=== PATIENT | male | born 1960 | race Caucasian/White ===

== ENCOUNTER 2018-11-23 09:02 | Day surgery (SDC) | payer OTHER ==
[~2018-11-23] VITALS: Ht 188 cm; Wt 150.5 kg
[~2018-11-23 09:02] MED LIST: AMLO5TAB6 PO; ASPI81TA83 OR; ATOR40TA75 PO; B COTAB3 PO; CARV6.25 PO; CATA0.2D TD; CHLO125TA PO; CIAL10TA OR; DIGO0.257 OR; EPLE25TA PO; FLEC1TAB PO; GLUCTAB PO; GLUCTAB2 PO; HYZAAR PO; LOSA100T50 PO; LOTRCRE TOP; LOVAZA PO; METO-743 OR; NIAS500T2 OR; TRIC145T19 OR; VITA100027 PO; VYTO10TA5 OR; XARE20TA PO; pradaxa
[2018-11-23] MEDS ORDERED: LR 1,000 ML IV ONE (09:45)
[2018-11-23] MEDS ORDERED: CARVedilol 6.25 MG TAB PO ONE (09:45)
[2018-11-23] MEDS ORDERED: AMPICILLIN SOD/SULBACTAM SOD 3 GM in D5W MINI-BAG PLUS 100 ML IV ONE (09:45)
[2018-11-23] MEDS ORDERED: LIDOCAINE 2% INJ 100 MG/5 ML SDV (FOR ANES.) As Ordered ONE (09:45)
[2018-11-23] MEDS ORDERED: PROPOFOL 200 MG/20 ML VIAL As Ordered ONE ×2 (09:45→11:54)
[2018-11-23] MEDS ORDERED: fentaNYL 100 MCG/2 ML INJECTION (J3010) As Ordered ONE ×3 (09:46→14:15)
[2018-11-23] MEDS ORDERED: dexameTHASONE 4 MG/ML 1ML VIAL (J1100) As Ordered ONE (09:46)
[2018-11-23] MEDS ORDERED: ROCURONIUM BROMIDE 50 MG/5 ML VIAL As Ordered ONE ×2 (09:46→11:51)
[2018-11-23] MEDS ORDERED: ONDANSETRON 4MG/2ML VIAL (J2405) As Ordered ONE (09:46)
[2018-11-23] MEDS ORDERED: MIDAZOLAM INJ 2 MG/2 ML VIAL (J2250) As Ordered ONE (09:47)
[2018-11-23 10:05] VITALS: BP 143/83
[2018-11-23] MEDS ORDERED: SUGAMMADEX SODIUM 500 MG/5 ML VIAL (BRIDION) As Ordered ONE (10:19)
[2018-11-23] MEDS ORDERED: LIDOCAINE 1% SDV INJ 30 ML VIAL As Ordered ONE (11:01)
[2018-11-23] MEDS ORDERED: BUPIVACAINE HCL 0.25% 30 ML VIAL As Ordered ONE (11:01)
[2018-11-23] MEDS ORDERED: VECURONIUM BROMIDE 10 MG VIAL As Ordered ONE (12:06)
[2018-11-23] MEDS ORDERED: KETOROLAC 60 MG/2 ML VIAL (J1885) As Ordered ONE (12:21)
[2018-11-23] MEDS ORDERED: ACETAMINOPHEN 1000MG 100ML IV BTL (OFIRMEV) (J0131 PER 10MG) As Ordered ONE (12:21)
[2018-11-23] MEDS ORDERED: PERCOCET 5MG/325MG TAB As Ordered ONE (14:58)
[2018-11-23] MEDS: PERCOCET 5MG/325MG TAB PO PRN ×2 (14:59→15:40)
[2018-11-23] MEDS ORDERED: ONDANSETRON 4MG/2ML VIAL (J2405) IV PRN (15:00)
[2018-11-23] MEDS ORDERED: LR 1,000 ML IV SCH (15:00)
[2018-11-23] MEDS ORDERED: fentaNYL 100 MCG/2 ML INJECTION (J3010) IV PRN (15:00)
[2018-11-23] MEDS ORDERED: MEPERIDINE INJ 25 MG/ML VIAL (J2175) IV PRN (15:00)
[2018-11-23] MEDS ORDERED: KETOROLAC 30 MG/ML VIAL (J1885) IV PRN (15:00)
[2018-11-23] MEDS ORDERED: METOCLOPRAMIDE INJ 10MG/2ML VIAL (J2765) IV PRN (15:00)
[2018-11-23] MEDS ORDERED: NORCO, ANEXSIA 5/325MG TABLET (HYDROcodone/ACETAMINOPHEN) PO PRN ×2 (15:15)
[2018-11-23 16:30] VITALS: BP 156/76
--- NOTE | 2018-12-12 06:03 | ROOPDOC ---
[facility] Report Of Operation Report of Operation DATE OF PROCEDURE: 12/12/18 PREPROCEDURE DIAGNOSES: Biliary dyskinesia, biliary colic, gallbladder polyps. POSTPROCEDURE DIAGNOSES: Chronic cholecystitis. PROCEDURE: Laparoscopic cholecystectomy. SURGEON: Sage Flor MD CUSTODIAL OFFICER: MD Dr. Jake Ochoa was present throughout the whole procedure. He assisted with placement of ports, retraction of the gallbladder and closure of the port sites afterwards. ANESTHESIA: Gen. anesthesia. ESTIMATED BLOOD LOSS: Approximately 50 mL. COMPLICATIONS: None. . PROCEDURE NOTE: Due to the patient's body habitus, morbid obesity, enlargement of the liver and location of the gallbladder well inside the liver, and difficulty dissecting down in maintaining visualization of the cystic duct so a drop fundus to gallbladder neck dissection was performed until the cystic duct was found. The cystic duct was controlled with 2 Vicryl Endoloops. While preparing the patient for surgery a tic was found on his right arm and I removed this. DESCRIPTION OF PROCEDURE: Patient was given a dose Unasyn 3 g IV preoperatively for prophylaxis. She was brought to the operating room, laid supine on the table, compression boots placed for DVT prophylaxis. General endotracheal anesthesia started. Her abdomen then prepped and draped in usual sterile fashion. Surgical timeout was performed prior to starting surgery. Entry into the abdomen done through an incision above the umbilicus. A Veress needle was inserted with a controlled fashion. CO2 insufflation started to pressure 15 mmHg. Using the same incision a 5 mm Visiport was placed under direct vision laparoscope. The area underneath the insertion site was inspected and no injury found. She was then placed in steep reverse Trendelenburg. Her right side was tilted up to further expose the gallbladder. Under direct vision a 11 mm epigastric port and two 5 mm working ports placed along the right subcostal line. Operative findings: His liver is mildly enlarged but noted to be smooth in contour no nodularities or lesions found. His gallbladder is moderately distended but thin walled. A was not able to palpate any stones within the gallbladder. This courses slightly deep into the underside of the liver with difficulty maintaining visualization of the neck of the gallbladder due to the bulkiness of the omentum overlying the area. The fundus of the gallbladder was grasped and the gallbladder was elevated superiorly exposing the neck of the gallbladder. The peritoneum overlying the area was opened up and dissected free both anteriorly and posteriorly to help with retraction of the gallbladder. The hepatocystic triangle was approached and dissected using a [place] and instrument. Though I could visually see the hepatocystic triangle and work on it that I had trouble maintaining visualization . [place] through the procedure and decided to perform a dome down approach. The posterior wall of the fundus of gallbladder was dissected free from the liver plate continued both medially and laterally. As I was able to dissect the gallbladder from the liver plate was able to maintained traction of the gallbladder and eventually able to maintain adequate visualization to fully dissect the hepatocystic triangle. The cystic duct was identified coming off from the next gallbladder this was circumferentially dissected. The cystic artery was identified in its usual position medially behind a small lymph node of [place]. This was similarly circumferentially dissected off surrounding adipose tissue. We continued posterior dissection proximally at the next gallbladder until a critical view of safety was achieved whereby only the previously identified duct and artery coursing through the neck the gallbladder. At this point the cystic artery was clipped 4 times and divided. After again checking her anatomy and verifying that the previously identified cystic duct, I used 2 Vicryl Endoloops to encircle the cystic duct stump as it looks like it's enlarged that the Hemoclip wound to fully control the cystic duct stump. I placed an additional clip after placement of the Vicryl Endoloop and after dividing partially the cystic duct. The rest of the gallbladder was then dissected free of the gallbladder bed using Bovie cautery. There was minimal bleeding at the lateral gallbladder attachments to the liver capsule this was easily controlled with Bovie cautery. The gallbladder was then placed in an Endo Catch bag and retrieved outside through the epigastric port site. Under insufflation and inspected the clips and noted this to be in place. No further bleeding noted. No bile leakage noted. The abdomen was insufflated all ports were removed. The epigastric fascial defect repaired with 0 Vicryl in a mattress fashion. Rest of the skin incisions closed with 4-0 Monocryl in subcuticular fashion. Steri-Strips and gauze dressings were placed, the wound. Patient was informed they awakened, extubated and brought to recovery room stable SAGE FLOR MD December 12, 2018 06:02
== END 2018-11-23 16:35 | disposition home or self-care (01) ==
LOC: M SDC 09:02
PROVIDERS: ATTEND Surgery
DX: K82.8 Other specified diseases of gallbladder (principal); I10 Essential (primary) hypertension; I48.91 Unspecified atrial fibrillation; G47.30 Sleep apnea, unspecified; E78.5 Hyperlipidemia, unspecified; E11.9 Type 2 diabetes mellitus without complications; Z79.899 Other long term (current) drug therapy; Z79.01 Long term (current) use of anticoagulants; Z86.711 Personal history of pulmonary embolism
CPT/HCPCS: 47562; 88300; 88304; J0131; J1100; J1885; J2250; J2405; J3010

== ENCOUNTER → 2019-09-05 | Outpatient (CLI) | payer BC ==
[~2019-09-05] MED LIST changes: +METHACHOLINE KIT (J7674) INH ONE
--- NOTE | 2019-09-05 08:36 | PFTRPT ---
Visit Date: 09/05/2019 Referring Doctor: Steve Ardon MD Height: 74.00 Inches Weight: 313.00 Lbs BSA: 2.63 Diagnosis: R05 Excellent technical quality. Under protocol, methacholine was administered. Even after a maximal dose of 25 mg or 188.875 CDUs, no provocation dose ever achieved. Flow rates did maintain at baseline post bronchodilator administration. IMPRESSION: Negative methacholine challenge study. MTDD
== END ==
LOC: M CARPUL 07:37
PROVIDERS: ATTEND Internal Medicine Pulmonary Disease
DX: R05 Cough (principal)
CPT/HCPCS: 94070; J7674

== ENCOUNTER → 2020-09-21 | Outpatient (CLI) | payer BC ==
[~2020-09-21] MED LIST changes: +AMLO1TAB24 PO; -AMLO5TAB6 PO; -METHACHOLINE KIT (J7674) INH ONE
--- NOTE | 2020-09-21 14:15 | PFTRPT ---
Height: 74.00 Inches Weight: 316.00 Lbs BSA: 2.64 Diagnosis: R05 DATE: 09/21/2020 ORDERING PHYSICIAN: Dr. Tomas Aparicio Pre and post bronchodilator studies have excellent technical quality. Some difficulty with the required maneuver is noted. Forced vital capacity is reduced. FEV1 is in proportion. Obstructive index is therefore normal. Expiratory limit of the flow-volume loop does suggest difficulty with the required maneuver. No significant bronchodilator response is identified. Total lung capacity is normal. Residual volume does suggest borderline air trapping. Diffusing capacity is normal. No hemoglobin available for correction. Airway resistance and conductance are normal. IMPRESSION: Suspect some degree of underlying air trapping. Please correlate clinically. MTDD
== END ==
LOC: M CARPUL 13:32
PROVIDERS: ATTEND Internal Medicine Cardiovascular Disease
DX: R05 Cough (principal)

== ENCOUNTER 2024-08-27 07:23 | Day surgery (SDC) | payer BC ==
[~2024-08-27] VITALS: Ht 177.8 cm; Wt 125.4 kg
[~2024-08-27 07:23] MED LIST changes: +B-12100010 PO; +BUME0.5T2 PO; +CARV12.5 PO; -CATA0.2D TD; +CHOL4POW26 PO; +CLON0.3D8 TD; +CLON1PAT4 TD; +DAPA10TA5 PO; +ENTR1TAB7 PO; -EPLE25TA PO; +EPLE25TA15 PO; +EPLE50TA12 PO; +FLUTISP; +LOSA100T46 PO; -LOSA100T50 PO; +MAGN400T35 PO; +METF10004 PO; +MONT10TA97 PO; +PANT20TA6 PO; +SOTA120T PO; +TRUL0.5I SC; +VASC1CAP2 PO
[2024-08-27] MEDS ORDERED: GLYCOPYRROLATE INJ 0.2 MG/ML 2 ML VIAL As Ordered ONE (09:18)
[2024-08-27] MEDS ORDERED: LIDOCAINE 2% 100MG/5ML SDV (FOR ANES.) As Ordered ONE (09:18)
[2024-08-27] MEDS ORDERED: propofoL 200 MG/20 ML VIAL As Ordered ONE (09:18)
[2024-08-27 09:37] VITALS: TEMP 98.2
[2024-08-27 09:58] VITALS: BP 111/56; O2SAT 97
== END 2024-08-27 10:07 | disposition home or self-care (01) ==
LOC: M OPP 07:23
PROVIDERS: ATTEND Internal Medicine Gastroenterology
DX: Z12.11 Encounter for screening for malignant neoplasm of colon (principal); D12.4 Benign neoplasm of descending colon; K64.8 Other hemorrhoids; I48.91 Unspecified atrial fibrillation; G47.30 Sleep apnea, unspecified; Z79.84 Long term (current) use of oral hypoglycemic drugs; Z79.85 Long-term (current) use of injectable non-insulin antidiabetic drugs; Z79.01 Long term (current) use of anticoagulants; F17.200 Nicotine dependence, unspecified, uncomplicated
CPT/HCPCS: 45385; 88305; J1596